=== PATIENT | female | born 1975 | race Caucasian/White ===

== ENCOUNTER 2018-06-10 22:31 | Emergency (ER) | payer OTHER ==
[~2018-06-10] VITALS: Ht 162.6 cm; Wt 124.7 kg
[~2018-06-10 22:31] MED LIST: CRUTCH3 USE; HYDACE5; LAMO25; MIRT15ST MM; NAPR500 PO; OXYACE5T PO; PARO30 PO; QUET100; QUET25 PO; VENL25; [UNRECOGNIZED DRUG - REMARK]
[2018-06-10] MEDS ORDERED: Cymbalta20 MG PT (23:59)
[2018-06-10] MEDS ORDERED: Prilosec10 M1 PO (23:59)
[2018-06-10] MEDS ORDERED: Zantac150 MG PO (23:59)
[2018-06-10] MEDS ORDERED: RISP1 PO (23:59)
[2018-06-10] MEDS ORDERED: CLON1 PO (23:59)
[2018-06-11] MEDS ORDERED: CYCL10 PO (00:48)
[2018-06-11] MEDS ORDERED: Clotrimazole15 GM TOP (00:48)
[2018-06-11] MEDS ORDERED: VOLTAREN100 GM TOP (00:48)
== END 2018-06-11 00:55 | disposition home or self-care (01) ==
LOC: ER 22:31
DX: M25.561 Pain in right knee (principal); G89.29 Other chronic pain; M54.5 Low back pain; L30.4 Erythema intertrigo; F32.9 Major depressive disorder, single episode, unspecified; F41.9 Anxiety disorder, unspecified; Z91.040 Latex allergy status; Z88.0 Allergy status to penicillin; Z88.1 Allergy status to other antibiotic agents; Z79.899 Other long term (current) drug therapy
CPT/HCPCS: 72100; 73562-RT; 99283-25

== ENCOUNTER 2019-12-12 19:32 | Emergency (ER) | payer OTHER ==
[~2019-12-12] VITALS: Ht 162.6 cm; Wt 108.9 kg
[~2019-12-12 19:32] MED LIST changes: +CLON1 PO; +CYCL10 PO; +Clotrimazole15 GM TOP; +Cymbalta20 MG PT; +Prilosec10 M1 PO; +RISP1 PO; +VOLTAREN100 GM TOP; +Zantac150 MG PO
[2019-12-12] MEDS ORDERED: TOPI50 PO (19:58)
[2019-12-12] MEDS ORDERED: FLUC150A PO (21:31)
[2019-12-12] MEDS ORDERED: Bactrim Ds Tab1 EACH PO (21:31)
[2019-12-12] MEDS ORDERED: Roxicodone5 MG PO (21:31)
[2019-12-12 22:41] LABS: BASOPHILS PERCENT AUTO 1 % (0-2); EOSINOPHILS ABSOLUTE AUTO 0.33 K/mm3 (0.00-0.68); EOSINOPHILS PERCENT AUTO 3 % (0-6); Hematocrit 43.3 % (33.0-51.0); Hemoglobin 14.1 g/dL (11.5-16.0); IMMATURE GRAN ABSOLUTE AUTO 0.03 K/mm3 (0.00-0.10); IMMATURE GRAN PERCENT AUTO 0 % (0-1); LYMPHOCYTES ABSOLUTE AUTO 3.16 K/mm3 (0.84-5.20); LYMPHOCYTES PERCENT AUTO 28 % (21-46); MONOCYTES ABSOLUTE AUTO 0.82 K/mm3 (0.16-1.47); MONOCYTES PERCENT AUTO 7 % (4-13); Mean Corpuscular HGB 29.9 pg (26.0-34.0); Mean Corpuscular HGB Conc 32.6 g/dL (31.5-36.5); Mean Corpuscular Volume 92 fL (80-100); Mean Platelet Volume 11.7 fL (9.1-12.4); NEUTROPHILS ABSOLUTE AUTO 7.03 K/mm3 (1.96-9.15); NEUTROPHILS PERCENT AUTO 61 % (41-73); Platelet Count 268 K/mm3 (150-400); RDW Coefficient Variation 13.1 % (11.7-14.2); RDW Standard Deviation 44.5 fL (35.1-46.3); Red Blood Cell Count 4.71 M/mm3 (3.80-5.20); White Blood Cell Count 11.47 K/mm3 (4.00-11.30)
[2019-12-12 22:57] LABS: International Normalized Ratio 0.95; Prothrombin Time Results 10.2 Sec (9.7-11.5)
[2019-12-12 23:04] LABS: Alanine Aminotransfer (ALT/SGP 24 U/L (12-78); Albumin, Blood 3.6 g/dL (3.4-5.0); Alk Phos 81 U/L (50-136); Anion Gap 6 mmol/L (6-16); Aspartate Aminotrans (AST/SGOT 15 U/L (12-37); Bilirubin, Total 0.5 mg/dL (0.1-1.0); Blood Urea Nitrogen 10 mg/dL (8-24); CO2, Blood 26 mmol/L (21-32); Calcium, Blood 8.5 mg/dL (8.5-10.1); Chloride, Blood 107 mmol/L (98-108); Creatinine, Blood 0.83 mg/dL (0.40-1.00); Globulin, Blood 3.6 g/dL (2.2-4.0); Glomerular Filtration Rate >60 (60-); Glucose, Blood 80 mg/dL (70-99); Potassium, Blood 3.7 mmol/L (3.5-5.5); Sodium, Blood 139 mmol/L (136-145); Total Protein, Blood 7.2 g/dL (6.4-8.2)
== END 2019-12-12 23:20 | disposition home or self-care (01) ==
LOC: ER 19:32
PROVIDERS: Physician Assistant
DX: S61.552A Open bite of left wrist, initial encounter (principal); S71.152A Open bite, left thigh, initial encounter; F32.9 Major depressive disorder, single episode, unspecified; F41.9 Anxiety disorder, unspecified; K21.9 Gastro-esophageal reflux disease without esophagitis; F17.210 Nicotine dependence, cigarettes, uncomplicated; Z88.0 Allergy status to penicillin; Z88.1 Allergy status to other antibiotic agents; Z91.040 Latex allergy status; Z79.899 Other long term (current) drug therapy; Z23 Encounter for immunization; W54.0XXA Bitten by dog, initial encounter
CPT/HCPCS: 36415; 73110; 80053; 81000; 81025; 85025; 85610; 85730; 90471; 90714; 99283-25; A9270; A9270-GY

== ENCOUNTER → 2020-12-13 | Outpatient (CLI) | payer OTHER ==
[~2020-12-13] MED LIST changes: +Bactrim Ds Tab1 EACH PO; +FLUC150A PO; +Roxicodone5 MG PO; +TOPI50 PO
[2020-12-15 11:10] LABS: HPV 16 Negative (Negative); HPV 18 Negative (Negative); HPV OTHER HR TYPES Negative (Negative)
== END ==
LOC: LAB 17:39 → LAB SHORT 17:39
PROVIDERS: Registered Nurse Community Health
DX: Z12.4 Encounter for screening for malignant neoplasm of cervix (principal); Z88.0 Allergy status to penicillin; Z88.1 Allergy status to other antibiotic agents; Z91.040 Latex allergy status
CPT/HCPCS: 87624; G0123

== ENCOUNTER → 2022-02-06 | Outpatient (CLI) | payer OTHER ==
[2022-02-07 09:49] LABS: Candida species (DNA Probe) Negative (NEGATIVE); G. vaginalis (DNA Probe) Negative (NEGATIVE); T. vaginalis (DNA Probe) Negative (NEGATIVE)
[2022-02-08 04:08] LABS: CHLAMYDIA TRACHOMATIS, NAA Negative (Negative)
== END ==
LOC: LAB SHORT 12:00 → LAB 12:00
PROVIDERS: Registered Nurse Community Health
DX: Z11.3 Encounter for screening for infections with a predominantly sexual mode of transmission (principal)
CPT/HCPCS: 87480; 87491; 87510; 87591; 87660

== ENCOUNTER → 2022-11-20 | Outpatient (CLI) | payer OTHER ==
[~2022-11-20] MED LIST changes: +GABA100 PO; +IBUP800 PO; +Voltaren100 GM TOP
== END ==
LOC: LAB SHORT 12:58 → LAB 12:58
DX: E11.9 Type 2 diabetes mellitus without complications (principal)
CPT/HCPCS: 83036

== ENCOUNTER 2023-08-17 16:05 | Emergency (ER) | payer OTHER ==
[~2023-08-17] VITALS: Ht 160 cm; Wt 95.7 kg
[2023-08-17 16:07] VITALS: BP 161/109
[2023-08-17] MEDS ORDERED: Trimethoprim/Sulfamethoxazole DS Tab PO ONE (17:25)
[2023-08-17] MEDS ORDERED: Cleocin HCl150 MG PO (17:25)
[2023-08-17] MEDS ORDERED: BACTRIM DS TAB1 EAC1 PO (17:25)
[2023-08-17] MEDS ORDERED: Tetanus and Diphtheria Toxoid 0.5 ML INJ IM ONE (17:25)
[2023-08-17] MEDS ORDERED: Clindamycin HCl 150 MG Cap PO ONE (17:25)
== END 2023-08-17 17:35 | disposition home or self-care (01) ==
LOC: ER 16:05
DX: S50.871A Other superficial bite of right forearm, initial encounter (principal); K21.9 Gastro-esophageal reflux disease without esophagitis; F17.210 Nicotine dependence, cigarettes, uncomplicated; W55.01XA Bitten by cat, initial encounter; Z79.899 Other long term (current) drug therapy; Z88.0 Allergy status to penicillin; Z88.1 Allergy status to other antibiotic agents; Z91.040 Latex allergy status
CPT/HCPCS: 90471; 90714; 99283-25; A9270